=== PATIENT | male | born 1950 | race Two or more races ===

== ENCOUNTER 2019-04-27 17:38 | Emergency (ER) | payer MEDICARE, OTHER ==
[~2019-04-27] VITALS: Ht 152.4 cm; Wt 44.5 kg
[~2019-04-27 17:38] MED LIST: ASPI-1169 PO; ATOR80TA PO; BUSP10TA35 PO; CLOP75TA15 PO; FOLI1TAB16 PO; MECL-102 PO; NITR0.4T SL; OLME1TAB16 PO; TAMS0.4C34 PO
--- NOTE | 2019-04-27 17:45 | NUR ---
PT BIB RA 39 FROM HOME,DIZZINESS AND NEAR SYNCOPE ON THE WAY TO THE BATHROOM LOW BP IN THE FIELD. PT ALERT AND AWAKE, VSS, BREATHING EVEN AND UNLABORED ON ROOM AIR W/ NAD
--- NOTE | 2019-04-27 17:45 | NUR ---
PT CONNECTED TO INFORMATION MANAGEMENT MANAGER AND POX
--- NOTE | 2019-04-27 17:46 | NUR ---
BLOOD DRAWN AND SENT TO LAB
[2019-04-27 18:00] LABS: BASOPHILS % (AUTO) 0.6 % (0.0-2.0); EOSINOPHILS % (AUTO) 1.8 % (0.0-6.0); HEMATOCRIT 41 % (39-51); HEMOGLOBIN 13.5 g/dL (13.5-17.5); LYMPHOCYTES # (AUTO) 1.4 /CMM (0.8-4.8); LYMPHOCYTES % (AUTO) 17.3 % (20.0-44.0); MEAN CORPUSCULAR HGB CONC 33 g/dl (31.0-36.0); MEAN CORPUSCULAR VOLUME 89 fL (80-96); MONOCYTES # (AUTO) 0.7 /CMM (0.1-1.30); MONOCYTES % (AUTO) 7.9 % (2.0-12.0); NEUTROPHILS % (AUTO) 72.4 % (43.0-81.0); PLATELET COUNT (AUTO) 303 /CMM (150-450); RED BLOOD CELL COUNT(AUTO) 4.61 MIL/uL (4.5-6.0); WHITE BLOOD COUNT (AUTO) 8.3 K/uL (4.3-11.0)
[2019-04-27] MEDS ORDERED: ONDANSETRON HCL/PF 4 MG/2 ML VIAL IVP ONE (18:00)
[2019-04-27] MEDS ORDERED: IV NS 0.9% 1,000 ML BAG IV ONE (18:00)
[2019-04-27] MEDS ORDERED: ONDANSETRON HCL/PF 4 MG/2 ML VIAL ONE (18:04)
[2019-04-27 18:09] LABS: CALCIUM, SERUM 9.8 mg/dL (8.5-10.1); CARBON DIOXIDE 29 mmol/L (21-32); CHLORIDE 105 mmol/L (98-107); CREATININE 1.5 mg/dL (0.6-1.3); GLUCOSE 71 mg/dL (74-106); POTASSIUM 3.9 mmol/L (3.5-5.1); SODIUM SERUM 145 mmol/L (136-145); UREA NITROGEN, BLOOD 23 mg/dL (7-18)
[2019-04-27 18:14] LABS: ALANINE AMINOTRANSFERASE 22 U/L (12-78); ALBUMIN 3.8 g/dL (3.4-5.0); ALKALINE PHOSPHATASE 100 U/L (46-116); ASPARTATE AMINOTRANSFERASE 15 U/L (15-37); BILIRUBIN,DIRECT 0.1 mg/dL (0.0-0.2); BILIRUBIN,TOTAL 0.2 mg/dL (0.2-1.0); TOTAL PROTEIN, SERUM 7.4 g/dL (6.4-8.2)
--- NOTE | 2019-04-27 18:47 | NUR ---
PT TAKEN TO CT SCAN
--- NOTE | 2019-04-27 19:00 | NUR ---
PT BACK FROM CT
--- NOTE | 2019-04-27 19:52 | NUR ---
Patient discharged to home in stable condition. Written and verbal after care instructions given. Patient verbalizes understanding of instruction.IV removed. Catheter intact and site benign. Pressure and 4x4 applied to site. No bleeding noted.
[2019-04-27 19:53] VITALS: BP 109/50
== END 2019-04-27 19:53 | disposition home or self-care (01) ==
LOC: ER 17:39
DX: S00.01XA Abrasion of scalp, initial encounter (principal); R55 Syncope and collapse; I11.0 Hypertensive heart disease with heart failure; I50.9 Heart failure, unspecified; N40.0 Benign prostatic hyperplasia without lower urinary tract symptoms; D64.9 Anemia, unspecified; E78.00 Pure hypercholesterolemia, unspecified; I25.10 Atherosclerotic heart disease of native coronary artery without angina pectoris; F17.210 Nicotine dependence, cigarettes, uncomplicated; Z95.818 Presence of other cardiac implants and grafts; Z98.890 Other specified postprocedural states; Z79.82 Long term (current) use of aspirin; Z79.899 Other long term (current) drug therapy; X58.XXXA Exposure to other specified factors, initial encounter; Y93.89 Activity, other specified; Y92.89 Other specified places as the place of occurrence of the external cause; Y99.8 Other external cause status
CPT/HCPCS: 36415; 70450; 71045; 80048; 80076; 84484; 85025; 93005 ×2; 96361; 96374; 99284; J2405; J7030

== ENCOUNTER 2020-02-07 06:32 | Inpatient (IN) | payer MEDICARE, OTHER ==
[~2020-02-07] VITALS: Ht 152.4 cm; Wt 43.1 kg
[~2020-02-07 06:32] MED LIST changes: -MECL-102 PO; +MECL-159 PO
--- NOTE | 2020-02-07 06:35 | NUR ---
PT BIBRA39 FROM HOME C/O WORSENING SOB X 1 WEEK AND COUGH W/ CONGESTION.-FEVER. PT AAOX4, SATTING 88% ON RA, PLACED ON 3 L O2, PT NOW SATTING 93%. PT WAS COVID NEGATIVE 3 DAYS AGO AT [facility]. PT CONNECTED TO THE OUTPATIENT PHARMACY MANAGER AND POX.
--- NOTE | 2020-02-07 06:40 | NUR ---
BLOOD COLLECTED AND SENT TO LAB
--- NOTE | 2020-02-07 06:40 | NUR ---
EKG AT BEDSIDE
--- NOTE | 2020-02-07 06:50 | NUR ---
AWAITING COVID SWAB
--- NOTE | 2020-02-07 06:50 | NUR ---
PT UNABLE TO PROVIDE URINE AT THIS TIME. MADE AWARE
[2020-02-07] MEDS ORDERED: IV NS 0.9% 500 ML IV ONE (07:00)
[2020-02-07] MEDS ORDERED: CEFTRIAXONE 1GM BAG (ER ONLY) 50 ML IV ONE (07:00)
[2020-02-07] MEDS ORDERED: AZITHROMYCIN 500 MG in IV D5W 250 ML IV ONE (07:00)
[2020-02-07] MEDS ORDERED: IPRATROPIUM NEB FS 0.5 MG/2.5 ML AMPUL.NEB NEB ONE (07:00)
[2020-02-07] MEDS ORDERED: ALBUTEROL FS 2.5 MG/3 ML VIAL.NEB NEB ONE (07:00)
--- NOTE | 2020-02-07 07:03 | NUR ---
BALA SWABBED AND SENT TO LAB
[2020-02-07] MEDS ORDERED: ALBUTEROL FS 2.5 MG/3 ML VIAL.NEB ONE (07:05)
[2020-02-07] MEDS ORDERED: IPRATROPIUM NEB FS 0.5 MG/2.5 ML AMPUL.NEB ONE (07:05)
--- NOTE | 2020-02-07 07:06 | NUR ---
CALLED PHARMACY FOR MEDS
--- NOTE | 2020-02-07 07:06 | NUR ---
RT AT BEDSIDE FOR BREATHING TREATMENT
--- NOTE | 2020-02-07 07:07 | NUR ---
RT AT BEDSIDE
[2020-02-07 07:12] LABS: BASOPHILS # (AUTO) 0.1 /CMM (0.0-0.2); EOSINOPHILS % (AUTO) 13.4 % (0.0-6.0); HEMATOCRIT 43 % (39-51); LYMPHOCYTES # (AUTO) 2.3 /CMM (0.8-4.8); LYMPHOCYTES % (AUTO) 21.8 % (20.0-44.0); MEAN CORPUSCULAR HGB CONC 33 g/dl (31.0-36.0); MEAN CORPUSCULAR VOLUME 92 fL (80-96); MONOCYTES # (AUTO) 0.9 /CMM (0.1-1.30); MONOCYTES % (AUTO) 8.4 % (2.0-12.0); NEUTROPHILS # (AUTO) 5.8 /CMM (1.8-8.9); NEUTROPHILS % (AUTO) 55.4 % (43.0-81.0); PLATELET COUNT (AUTO) 312 /CMM (150-450); RED BLOOD CELL COUNT(AUTO) 4.68 MIL/uL (4.5-6.0); WHITE BLOOD COUNT (AUTO) 10.4 K/uL (4.3-11.0)
[2020-02-07 07:24] LABS: CALCIUM, SERUM 8.7 mg/dL (8.5-10.1); CARBON DIOXIDE 22 mmol/L (21-32); CHLORIDE 106 mmol/L (98-107); GLUCOSE 105 mg/dL (74-106); POTASSIUM 4.3 mmol/L (3.5-5.1); SODIUM SERUM 142 mmol/L (136-145); UREA NITROGEN, BLOOD 23 mg/dL (7-18)
[2020-02-07 07:39] LABS: ALANINE AMINOTRANSFERASE 26 U/L (12-78); ALBUMIN 3.6 g/dL (3.4-5.0); ALKALINE PHOSPHATASE 87 U/L (46-116); ASPARTATE AMINOTRANSFERASE 20 U/L (15-37); B-TYPE NATRIURETIC PEPTIDE 110 PG/ML (0-125); BILIRUBIN,TOTAL 0.3 mg/dL (0.2-1.0); TOTAL PROTEIN, SERUM 7.5 g/dL (6.4-8.2)
[2020-02-07 07:58] LABS: D-DIMER 1.64 mg/L(FEU (0.17-0.50)
[2020-02-07 08:15] LABS: CREATINE KINASE, TOTAL 322 U/L (39-308); FERRITIN 43 ng/mL (8-388)
--- NOTE | 2020-02-07 08:19 | NUR ---
room 103
[2020-02-07 08:21] LABS: C-REACTIVE PROTEIN < 0.2 mg/dL (0.0-0.9)
[2020-02-07] MEDS ORDERED: methylPREDNISolone SOD SUCC 125 MG/2ML VIAL IV ONE (08:30)
[2020-02-07] MEDS ORDERED: ALBU18HF2 INH (08:30)
[2020-02-07] MEDS ORDERED: OLME1TAB19 PO (08:30)
[2020-02-07] MEDS ORDERED: ALIR150P SQ (08:30)
[2020-02-07] MEDS ORDERED: methylPREDNISolone SOD SUCC 125 MG/2ML VIAL ONE (08:32)
[2020-02-07] MEDS ORDERED: IOHEXOL-350 100 ML VIAL IV ONE ×2 (08:34→08:56)
[2020-02-07] MEDS ORDERED: IV NS 0.9% 250 ML IV ONE (08:35)
--- NOTE | 2020-02-07 08:43 | NUR ---
wheeled patient via gurney accompanied by [employer] for ct scan
--- NOTE | 2020-02-07 08:55 | NUR ---
report given to Kenn OSORIO for [place].
[2020-02-07] MEDS ORDERED: MAG HYDROX/AL HYDROX/SIMETH 30 ML UDC PO PRN (09:00)
[2020-02-07] MEDS ORDERED: OLMESARTAN PO SCH (09:00)
[2020-02-07] MEDS ORDERED: HYDROCHLOROTHIAZIDE PO SCH (09:00)
[2020-02-07] MEDS ORDERED: Z GUARD REMEDY 2 OZ OINT TP PRN (09:00)
[2020-02-07] MEDS ORDERED: MAGNESIUM HYDROXIDE 30 ML UDC PO PRN (09:00)
[2020-02-07] MEDS ORDERED: HYDROCODONE/APAP 5/325MG TABLET PO PRN (09:00)
[2020-02-07] MEDS ORDERED: ACETAMINOPHEN 325 MG TABLET PO PRN (09:00)
[2020-02-07] MEDS ORDERED: ONDANSETRON HCL/PF 4 MG/2 ML VIAL IVP PRN (09:00)
--- NOTE | 2020-02-07 09:07 | NUR ---
patient came back from ct
[2020-02-07 09:25] LABS: APPEARANCE,URINE Clear (CLEAR); BILIRUBIN,URINE Negative (NEGATIVE); BLOOD, URINE Trace-lysed Ery/uL (NEGATIVE); COLOR,URINE Other (YELLOW); KETONES,URINE Negative (NEGATIVE); LEUKOCYTE ESTERASE ,URINE Negative (NEGATIVE); NITRITE, URINE Negative (NEGATIVE); PH,URINE 5.5 (5.0-8.0); PROTEIN,URINE Negative (NEGATIVE); UGLUCOSE Negative (NEGATIVE); UROBILINOGEN,URINE 0.2 EU/dL (0.2)
[2020-02-07 09:47] LABS: BACTERIA,URINE None seen /HPF (None Seen); RBC,URINE 0-2 /HPF (0-2); WBC,URINE 0-2 /HPF (0-3)
--- NOTE | 2020-02-07 09:47 | NUR ---
SPOKE TO NURSING SUP ABOUT BED ASSIGNMENT CHANGE. CURRENTLY WORKING ON MOVING PATIENTS AROUND TO ACCOMODATE.
[2020-02-07 09:48] LABS: SQUAMOUS EPITHELIAL CELL,UR None Seen /HPF (None Seen); URINE AMORPHOUS URATE Few /HPF (None Seen)
[2020-02-07 10:40] LABS: BILIRUBIN,DIRECT 0.1 mg/dL (0.0-0.2)
--- NOTE | 2020-02-07 11:03 | NUR ---
overflow tele [phone]
--- NOTE | 2020-02-07 11:06 | NUR ---
report given to tisha RN for [place]
--- NOTE | 2020-02-07 11:38 | NUR ---
RN NOTES RECEIVED PATIENT FROM ER, PATIENT COMING IN DUE TO SHORTNESS OF BREATH. NO SIGNS OF SHORTNESS OF BREATH AT THIS TIME. ON ROOM AIR. AMBULATORY AND IS ABLE TO MOVE SELF FROM GURNEY TO BED. ALERT AND ORIENTEDX4, ABLE TO MAKE NEEDS KNOWN. NO COMPLAINTS OF PAIN AT THIS TIME BUT IS WORRIED AND IS ASKING FOR LAB RESULTS. PATIENT INFORMED THAT WE WILL DISCUSS RESULTS SOON HE SETTLES IN. ATTACHED TO THE MONITOR, V PACING AT 60s. IV ACCESS ON THE LFA, G [address] AND INTACT, FLUSHES WELL. PATIENT INFORMED ON ISOLATION STATUS PENDING COVID RESULTS. INFORMED ABOUT PLANS OF CARE. ENCOURAGE TO CALL FOR HELP AND ASSISTANCE. TO VERBALIZED FEELINGS AND CONCERNS. SAFETY MEASURES PUT IN PLACE. CALL LIGHT WITHIN REACH. WILL CONTINUE TO MONITOR PATIENT ACCORDINGLY
[2020-02-07 12:00] VITALS: BP 141/90
[2020-02-07] MEDS: methylPREDNISolone SOD SUCC 40 MG/ML VIAL IV SCH ×3 (12:49→17:17)
[2020-02-07] MEDS: CLOPIDOGREL BISULFATE 75 MG TABLET PO SCH (12:49)
[2020-02-07] MEDS: TAMSULOSIN 0.4 MG CAP.SR.24H PO SCH (12:49)
[2020-02-07] MEDS: ATORVASTATIN 40 MG TABLET PO SCH (12:49)
[2020-02-07] MEDS: ENOXAPARIN SODIUM 40 MG/0.4 ML DISP.SYRIN SQ SCH (12:50)
[2020-02-07] MEDS: FOLIC ACID 1 MG TABLET PO SCH (12:52)
[2020-02-07 16:00] VITALS: BP 150/89
[2020-02-07] MEDS: LOSARTAN POTASSIUM 50 MG TABLET PO SCH (17:30)
[2020-02-07] MEDS: HYDROCHLOROTHIAZIDE 25 MG TABLET PO SCH (17:30)
[2020-02-07] MEDS: IV NS 0.9% 1,000 ML IV PRN (19:04)
[2020-02-07] MEDS: IPRATROPIUM NEB FS 0.5 MG/2.5 ML AMPUL.NEB NEB SCH (19:30)
[2020-02-07] MEDS: ALBUTEROL FS 2.5 MG/0.5 ML VIAL.NEB NEB SCH (19:30)
[2020-02-07 22:00] VITALS: BP 145/87
--- NOTE | 2020-02-07 23:09 | NUR ---
RN OPENING NOTES: RECEIVED PT A/OX 4 IN BED RESTING COMFORTABLY. PATIENT IN NO S/SX OF ACUTE DISTRESS AT THIS TIME. NO SOB NOTED. PATIENT'S BREATHING IS EVEN AND UNLABORED. PATIENT IS ON 2 L OF OXYGEN VIA NC; TOLERATING WELL. PATIENT ON MECHANICAL VENT; SETTINGS PRESCRIBED; PT TOLERATED WELL. AMBU BAG AT BED SIDE ALARMS SET PER PROTOCOL AND AUDIBLE. VENT PLUGGED IN TO RED OUTLET. NO DISTRESS NOTED. PATIENT ON TELE MONITORING READING SINUS RHYTHM HR IS @72 AT TIME OF RECEIVED. NOTED IV SITE ON R FA #20 ; PATENT, INTACT AND FLUSHING WELLNO S/S OF INFECTION OR INFILTRATION. PATIENT ON CARDIAC DIET. URINAL AT BEDSIDE. SAFETY MEASURES HAVE BEEN PROVIDED AND IMPLEMENTED. PATIENT BED ALARM IS ON. HEAD OF BED ELEVATED. BED IS LOCKED, IN LOWEST POSITION AND SIDE RAILS UP. CALL LIGHT WITHIN REACH OF THE PATIENT. ISOLATION PRECAUTIONS IN PLACE. WILL CONTINUE TO MONITOR AND REASSESS FOR ANY CHANGES.
[2020-02-08] VITALS (7 sets, daily range): BP systolic 138–152; BP diastolic 63–85
--- NOTE | 2020-02-08 00:30 | NUR ---
[employer]NER[employer] NOTES RECEIVED PATIENT TRANSFER FROM ICU, ALERT AND ORIENTED X 4. VERBALLY RESPONSIVE AND ABLE TO FOLLOW DIRECTIONS. BREATHING REGULAR AND UNLABORED ON ROOM AIR. RIGHT FOREARM G20 IV LINE INTACT AND PATENT, INFUSING WELL WITH NO BLEEDING OR S/S OF INFILTRATION NOTED. ON CARDIAC MONITORING WITH AV PACING AT 66bpm. DENIES SUICIDAL IDEATION OR PAIN/DISCOMFORT AT THIS TIME. ON ISOLATION FOR SUSPECTED COVID19, PROPER ISOLATION PRECAUTIONS AND HAND WASHING OBSERVED. BED LOW AND LOCKED ON SEMI FOWLERS POSITION. CALL LIGHT IN REACH. WILL CONTINUE TO MONITOR.
--- NOTE | 2020-02-08 00:35 | NUR ---
RN NOTES REPORT GIVEN TO ASHLEY. PATIENT IS ALERT AND ORIENTED X4 LAO SPEAKING. PATIENT MOST RECENT V/S TAKEN AND RECORDED BP(140/85) T (98.2) HR (68) RR (17). PATIENT ON NC OF 2L OF O2,TOLERATES WELL .WITH IV LINE @ R FA #20 ;WITH RUNNINGIV FLUID OF NS @75MLS/HR. PATIENT TRANSFERRED TO MEDICAL SURGICAL ROOM 204 VIA MEDICAL BED. ALL PATIENT BELONGINGS TRANSFERRED WITH THE PATIENT. PATIENT SAFETY WAS MAINTAINED, CHEYENNE OSORIO RECEIVED THE PATIENT AND WILL CONTINUE CARE. Addendum: 02/08/20 at 0232 by BRITANY SHINE RN RN NOTES REPORT GIVEN TO ASHLEY. PATIENT IS ALERT AND ORIENTED X4 LAO SPEAKING. PATIENT MOST RECENT V/S TAKEN AND RECORDED BP(140/85) T (98.2) HR (68) RR (17). PATIENT ON NC OF 2L OF O2,TOLERATES WELL .WITH IV LINE @ R FA #20 ;WITH RUNNINGIV FLUID OF NS @75MLS/HR. PATIENT TRANSFERRED TO MEDICAL SURGICAL ROOM 204 VIA MEDICAL BED. ALL PATIENT BELONGINGS TRANSFERRED WITH THE PATIENT. PATIENT SAFETY WAS MAINTAINED, JO FERNANDEZ RECEIVED THE PATIENT AND WILL CONTINUE CARE.
[2020-02-08] MEDS: IPRATROPIUM NEB FS 0.5 MG/2.5 ML AMPUL.NEB NEB SCH ×4 (01:30→19:30)
[2020-02-08] MEDS: ALBUTEROL FS 2.5 MG/0.5 ML VIAL.NEB NEB SCH ×4 (01:30→19:30)
--- NOTE | 2020-02-08 06:50 | NUR ---
HI LO DRIVER CLOSING NOTES PATIENT IN BED ALERT AND ORIENTED X 4. AFEBRILE WITH NO S/S OF DISTRESS OBSERVED. RIGHT FOREARM G20 IV LINE PATENT AND INFUSING WELL. MAINTAINED ON CARDIAC MONITORING WITH AV PACING AT 68bpm. DENIES PAIN/DISCOMFORT AT THIS TIME. MAINTAINED ON ISOLATION FOR SUSPECTED COVID19, PROPER ISOLATION PRECAUTIONS AND HAND WASHING OBSERVED. BED LOW AND LOCKED ON SEMI FOWLERS POSITION. CALL LIGHT IN REACH. WILL ENDORSE TO MORNING SHIFT FOR MARILYNN.
--- NOTE | 2020-02-08 07:15 | NUR ---
RN OPENING NOTES RECEIVED PATIENT IN BED ALERT AND ORIENTED X 4. NO CARDIAC OR RESPIRATORY DISTRESS NOTED. NO SOB NOTED. AFEBRILE WITH NO S/S OF DISTRESS OBSERVED. IV ACCESS NOTED ON RIGHT FOREARM G20 IV LINE PATENT AND INFUSING WELL. MAINTAINED ON CARDIAC MONITORING WITH SHOWING V PACING AT 70bpm. DENIES PAIN/DISCOMFORT AT THIS TIME. MAINTAINED ON ISOLATION FOR SUSPECTED COVID19, PROPER ISOLATION PRECAUTIONS AND HAND WASHING OBSERVED. BED LOW AND LOCKED ON SEMI FOWLERS POSITION. CALL LIGHT IN REACH. WILL CONT TO MONITOR
[2020-02-08 07:43] LABS: BASOPHILS % (AUTO) 0.1 % (0.0-2.0); EOSINOPHILS % (AUTO) 0.1 % (0.0-6.0); HEMATOCRIT 38 % (39-51); LYMPHOCYTES # (AUTO) 1.3 /CMM (0.8-4.8); LYMPHOCYTES % (AUTO) 9.6 % (20.0-44.0); MEAN CORPUSCULAR HGB CONC 32 g/dl (31.0-36.0); MEAN CORPUSCULAR VOLUME 92 fL (80-96); MONOCYTES # (AUTO) 0.8 /CMM (0.1-1.30); MONOCYTES % (AUTO) 5.8 % (2.0-12.0); NEUTROPHILS # (AUTO) 11.8 /CMM (1.8-8.9); NEUTROPHILS % (AUTO) 84.4 % (43.0-81.0); PLATELET COUNT (AUTO) 252 /CMM (150-450); RED BLOOD CELL COUNT(AUTO) 4.07 MIL/uL (4.5-6.0)
[2020-02-08 07:52] LABS: CALCIUM, SERUM 9.1 mg/dL (8.5-10.1); CREATININE 0.9 mg/dL (0.6-1.3); MAGNESIUM 2.1 mg/dL (1.8-2.4); PHOSPHORUS 3.8 mg/dL (2.5-4.9); POTASSIUM 4.4 mmol/L (3.5-5.1)
[2020-02-08 08:07] LABS: THYROID STIMULATING HORMONE 0.793 uIU/mL (0.358-3.74)
[2020-02-08] MEDS: LOSARTAN POTASSIUM 50 MG TABLET PO SCH (08:25)
[2020-02-08] MEDS: methylPREDNISolone SOD SUCC 40 MG/ML VIAL IV SCH ×3 (08:25→16:38)
[2020-02-08] MEDS: CEFTRIAXONE 1 G in IV D5W 50 ML IV SCH (08:25)
[2020-02-08] MEDS: TAMSULOSIN 0.4 MG CAP.SR.24H PO SCH (08:25)
[2020-02-08] MEDS: CLOPIDOGREL BISULFATE 75 MG TABLET PO SCH (08:26)
[2020-02-08] MEDS: ATORVASTATIN 40 MG TABLET PO SCH (08:26)
[2020-02-08] MEDS: FOLIC ACID 1 MG TABLET PO SCH (08:26)
[2020-02-08] MEDS: HYDROCHLOROTHIAZIDE 25 MG TABLET PO SCH (08:26)
[2020-02-08] MEDS: ENOXAPARIN SODIUM 40 MG/0.4 ML DISP.SYRIN SQ SCH (08:28)
[2020-02-08] MEDS: AZITHROMYCIN 500 MG in IV D5W 250 ML IV SCH (09:58)
[2020-02-08 10:58] LABS: ABG BASE EXCESS -1.2 mmol/L; ABG OXYGEN SATURATION 99.1 % (92.0-98.5); ABG PCO2 26.7 mmHg (35.0-45.0); ABG PH 7.505 (7.350-7.450); ABG PO2 157.6 mmHg (75.0-100.0); COHb 0.6 % (0.5-1.5); MetHb 0.1 % (0.0-1.5); O2Hb 98.4 % (94.0-97.0); SITE, ABG Right Radial; VENT MODE, BG RA
--- NOTE | 2020-02-08 18:35 | NUR ---
RN CLOSING NOTES PATIENT IN BED ALERT AND ORIENTED X 4. NO CARDIAC OR RESPIRATORY DISTRESS NOTED. NO SOB NOTED. AFEBRILE WITH NO S/S OF DISTRESS OBSERVED. IV ACCESS NOTED ON RIGHT FOREARM G20 IV LINE PATENT AND INFUSING WELL. MAINTAINED ON CARDIAC MONITORING WITH SHOWING V PACING AT 70bpm. DENIES PAIN/DISCOMFORT AT THIS TIME. ALL NEEDS MET AND ATTENDED. ALL DUE MEDS ADMINISTERED. NO ASE NOTED. MAINTAINED ON ISOLATION FOR SUSPECTED COVID19, PROPER ISOLATION PRECAUTIONS AND HAND WASHING OBSERVED. BED LOW AND LOCKED ON SEMI FOWLERS POSITION. CALL LIGHT IN REACH. WILL ENDORSE TO NEXT SHIFT
--- NOTE | 2020-02-08 19:10 | NUR ---
MELTER SUPERVISOR OPENING NOTES: RECEIVED PATIENT IN BED, AWAKE. A/O X4. NO S/S OF DISTRESS NOTED. CALL LIGHT WITHIN REACH. NO COMPLAIN OF PAIN. BED IN LOWEST AND LOCKED POSITION. BED ALARM ON. INSTRUCTED PATIENT TO CALL FOR ANY ASSISTANCE WHEN OOB, PATIENT VERBALIZED UNDERSTANDING.
[2020-02-08] MEDS: IV NS 0.9% 1,000 ML IV PRN (23:15)
--- NOTE | 2020-02-08 23:29 | NUR ---
PATIENT REFUSED TO HAVE THE IVF RUNNING.
[2020-02-09] VITALS: BP 154/72
--- NOTE | 2020-02-09 00:09 | NUR ---
PATIENT'S IV IS LEAKING,REFUSED IV REINSERTION AND IVF.
[2020-02-09] MEDS: IPRATROPIUM NEB FS 0.5 MG/2.5 ML AMPUL.NEB NEB SCH ×4 (01:30→19:30)
[2020-02-09] MEDS: ALBUTEROL FS 2.5 MG/0.5 ML VIAL.NEB NEB SCH ×4 (01:30→19:30)
[2020-02-09 04:00] VITALS: BP_SYST 153; BP_SYST 154; BP_DIAS 70; BP_DIAS 72
--- NOTE | 2020-02-09 07:28 | NUR ---
COMMISSIONING EDITOR CLOSING NOTES: PATIENT IN BED,ASLEEP. NO S/S OF DISTRESS NOTED. NO COMPLAIN OF PAIN. CALL LIGHT WITHIN REACH. BED ALARM ON. BED IN LOWEST AND LOCKED POSITION.
--- NOTE | 2020-02-09 07:40 | NUR ---
RN NOTE THE PATIENT IS RECEIVED IN BED. ALERT AND ORIENTED X4. IN ROOM AIR AND DENIES SOB. RESPIRATION REGULAR AND UNLABORED. DENIES PAIN. IN NO APPARENT DISTRESS. BED LOW AND LOCKED. SIDE RAILS UP X2. CALL LIGHT WITHIN REACH. WILL CONTINUE TO MONITOR.
[2020-02-09 08:00] VITALS: BP 152/69
[2020-02-09] MEDS: methylPREDNISolone SOD SUCC 40 MG/ML VIAL IV SCH ×2 (08:14→18:22)
[2020-02-09] MEDS: FOLIC ACID 1 MG TABLET PO SCH (08:14)
[2020-02-09] MEDS: CEFTRIAXONE 1 G in IV D5W 50 ML IV SCH (08:14)
[2020-02-09] MEDS: CLOPIDOGREL BISULFATE 75 MG TABLET PO SCH (08:15)
[2020-02-09] MEDS: ATORVASTATIN 40 MG TABLET PO SCH (08:15)
[2020-02-09] MEDS: TAMSULOSIN 0.4 MG CAP.SR.24H PO SCH (08:15)
[2020-02-09] MEDS: ENOXAPARIN SODIUM 40 MG/0.4 ML DISP.SYRIN SQ SCH (08:16)
[2020-02-09] MEDS: LOSARTAN POTASSIUM 50 MG TABLET PO SCH (08:17)
[2020-02-09] MEDS: HYDROCHLOROTHIAZIDE 25 MG TABLET PO SCH (08:17)
--- NOTE | 2020-02-09 08:32 | NUR ---
RT NOTE PER COVID PROTOCOL NO NEBULIZED TX GIVEN
[2020-02-09 08:46] LABS: BASOPHILS % (AUTO) 0.2 % (0.0-2.0); EOSINOPHILS % (AUTO) 0.2 % (0.0-6.0); HEMATOCRIT 42 % (39-51); LYMPHOCYTES % (AUTO) 11.7 % (20.0-44.0); MEAN CORPUSCULAR HGB CONC 34 g/dl (31.0-36.0); MEAN CORPUSCULAR VOLUME 89 fL (80-96); MONOCYTES # (AUTO) 0.5 /CMM (0.1-1.30); MONOCYTES % (AUTO) 3.2 % (2.0-12.0); NEUTROPHILS # (AUTO) 14.5 /CMM (1.8-8.9); NEUTROPHILS % (AUTO) 84.7 % (43.0-81.0); PLATELET COUNT (AUTO) 319 /CMM (150-450); RED BLOOD CELL COUNT(AUTO) 4.64 MIL/uL (4.5-6.0); WHITE BLOOD COUNT (AUTO) 17.1 K/uL (4.3-11.0)
[2020-02-09 08:49] LABS: CALCIUM, SERUM 9.9 mg/dL (8.5-10.1); POTASSIUM 3.6 mmol/L (3.5-5.1)
[2020-02-09] MEDS: AZITHROMYCIN 500 MG in IV D5W 250 ML IV SCH (09:57)
[2020-02-09 12:00] VITALS: BP 139/79
[2020-02-09 16:00] VITALS: BP 155/73
--- NOTE | 2020-02-09 18:44 | NUR ---
RN NOTE THE PATIENT IS ALERT AND ORIENTED X4. DENIES PAIN. IN ROOM AIR AND OXYGEN SATURATION IS AT 93%. FLIP SOB. THE PATIENT IN NO APPARENT DISTRESS. THE PATIENT HAS NEW LINE OF RIGHT FA 22 THAT IS PATENT AND SALINE LOCKED. THE PATIENT IS NON-COMPLIANT WITH IV FLUIDS DESPITE EXPLAINING RISKS AND BENEFITS MULTIPLE TIMES. THE PATIENT IN NO APPARENT DISTRESS. BED LOW AND LOCKED. SIDE RAILS UP X2. CALL LIGHT WITHIN REACH. WILL ENDORSE TO RAISER HELPER.
--- NOTE | 2020-02-09 19:45 | NUR ---
CLASSROOM ASSISTANT OPENING NOTES RECEIVED PATIENT FROM MORNING SHIFT , ALERT AND ORIENTED X 4. AMBULATORY, VERBALLY RESPONSIVE AND ABLE TO FOLLOW DIRECTIONS. BREATHING REGULAR AND UNLABORED ON ROOM AIR. RIGHT FOREARM G20 IV LINE INTACT AND PATENT, FLUSHING WELL WITH NO BLEEDING OR S/S OF INFILTRATION NOTED. ON CARDIAC MONITORING WITH AV PACING AT 79bpm. DENIES SUICIDAL IDEATION OR PAIN/DISCOMFORT AT THIS TIME. ON ISOLATION FOR SUSPECTED COVID19, PROPER ISOLATION PRECAUTIONS AND HAND WASHING OBSERVED. BED LOW AND LOCKED ON SEMI FOWLERS POSITION. CALL LIGHT IN REACH. WILL CONTINUE TO MONITOR.
[2020-02-09 20:00] VITALS: BP 150/80
--- NOTE | 2020-02-09 20:00 | NUR ---
CIRCULAR SAW OPERATOR NOTES REFUSED IV FLUIDS INFUSION, RISK AND BENEFITS EXPLAINED. MD AWARE. WILL CONTINUE TO MONITOR.
--- NOTE | 2020-02-09 20:37 | NUR ---
RT per covid protocol, no neb tx given
[2020-02-10] VITALS: BP 146/72
[2020-02-10] MEDS: IPRATROPIUM NEB FS 0.5 MG/2.5 ML AMPUL.NEB NEB SCH ×4 (01:30→20:04)
[2020-02-10] MEDS: ALBUTEROL FS 2.5 MG/0.5 ML VIAL.NEB NEB SCH ×4 (01:30→20:04)
[2020-02-10 04:00] VITALS: BP 143/75
--- NOTE | 2020-02-10 06:40 | NUR ---
PAPER PRODUCTS PRINTER CLOSING NOTES PATIENT IN BED ALERT AND ORIENTED X 4. AFEBRILE WITH NO S/S OF DISTRESS OBSERVED. RIGHT FOREARM G20 IV LINE PATENT AND INFUSING WELL. MAINTAINED ON CARDIAC MONITORING WITH AV PACING AT 61bpm. DENIES PAIN/DISCOMFORT AT THIS TIME. MAINTAINED ON ISOLATION FOR SUSPECTED COVID19, PROPER ISOLATION PRECAUTIONS AND HAND WASHING OBSERVED. BED LOW AND LOCKED ON SEMI FOWLERS POSITION. CALL LIGHT IN REACH. WILL ENDORSE TO MORNING SHIFT FOR MARILYNN.
[2020-02-10 08:00] VITALS: BP 157/77
--- NOTE | 2020-02-10 08:00 | NUR ---
rn notes patient seen in the bed a/o x4, room air, no acute respiratory distress, v/s stable, due medication administered, iv access on right FA intact,refused iv infusion stae he will drink water. patient ambulatory self care, refused pain. call light within to reach, will continued monitoring.
[2020-02-10 09:00] LABS: BASOPHILS % (AUTO) 0.1 % (0.0-2.0); EOSINOPHILS % (AUTO) 0.1 % (0.0-6.0); HEMATOCRIT 42 % (39-51); HEMOGLOBIN 13.5 g/dL (13.5-17.5); LYMPHOCYTES # (AUTO) 1.6 /CMM (0.8-4.8); MEAN CORPUSCULAR HGB CONC 33 g/dl (31.0-36.0); MEAN CORPUSCULAR VOLUME 90 fL (80-96); MONOCYTES # (AUTO) 0.8 /CMM (0.1-1.30); MONOCYTES % (AUTO) 5.7 % (2.0-12.0); NEUTROPHILS # (AUTO) 11.8 /CMM (1.8-8.9); NEUTROPHILS % (AUTO) 83.1 % (43.0-81.0); PLATELET COUNT (AUTO) 291 /CMM (150-450); RED BLOOD CELL COUNT(AUTO) 4.64 MIL/uL (4.5-6.0); WHITE BLOOD COUNT (AUTO) 14.2 K/uL (4.3-11.0)
[2020-02-10] MEDS: ENOXAPARIN SODIUM 40 MG/0.4 ML DISP.SYRIN SQ SCH ×2 (09:00→09:09)
[2020-02-10] MEDS ORDERED: AZITHROMYCIN 250 MG TABLET PO SCH (09:00)
[2020-02-10] MEDS: LOSARTAN POTASSIUM 50 MG TABLET PO SCH (09:02)
[2020-02-10] MEDS: CEFTRIAXONE 1 G in IV D5W 50 ML IV SCH (09:02)
[2020-02-10] MEDS: ATORVASTATIN 40 MG TABLET PO SCH (09:02)
[2020-02-10] MEDS: TAMSULOSIN 0.4 MG CAP.SR.24H PO SCH (09:02)
[2020-02-10] MEDS: CLOPIDOGREL BISULFATE 75 MG TABLET PO SCH (09:03)
[2020-02-10] MEDS: HYDROCHLOROTHIAZIDE 25 MG TABLET PO SCH (09:03)
[2020-02-10] MEDS: methylPREDNISolone SOD SUCC 40 MG/ML VIAL IV SCH ×2 (09:04→17:50)
[2020-02-10] MEDS: FOLIC ACID 1 MG TABLET PO SCH (09:04)
[2020-02-10 12:00] VITALS: BP 130/64
--- NOTE | 2020-02-10 12:00 | NUR ---
rn notes seen patient via hospitalist plan is discharge home after covid result.
[2020-02-10 12:44] LABS: POTASSIUM 4.9 mmol/L (3.5-5.1)
--- NOTE | 2020-02-10 13:22 | NUR ---
refused obedn tx.pt. said " I don't need that." Addendum: 02/10/20 at 1322 by SERVANDO JEWELL RT Amended: Links added.
[2020-02-10] MEDS ORDERED: AMOX500C2 PO (15:54)
[2020-02-10] MEDS ORDERED: METH4TAB3 PO (15:54)
[2020-02-10] MEDS ORDERED: AZIT500T4 PO (15:54)
[2020-02-10 16:00] VITALS: BP 127/69
--- NOTE | 2020-02-10 18:50 | NUR ---
rn notes GET COVID-19 RESULT AT THIS TIME, AND PATIENT WILL DISCHARGE HOME SELF CARE. PATIENT WILL FOLLOW PCP. ENDORSED ONCOMING NURSE FOLLOW PLAN OF CARE.
[2020-02-10 20:00] VITALS: BP 139/49
--- NOTE | 2020-02-10 20:02 | NUR ---
telegraph inspector opening note received patient in bed. a/ox 4. tolerating room air.respirations are even and unlabored. no s/s sob noted. no c/o pain at this time. in no apparent distress. iv access in RFA #20 currently SL. bed is low an d locked, hob elevated in semi fowlers side rials up x2. call light within reach. will continue to monitor.
--- NOTE | 2020-02-10 21:14 | NUR ---
telephone lineworkerexternal grinder tender note patient is being dicharged home. being picked up by son. wheel chair down with staff software engineer. exit care given and explained. belongings list signed. iv removed. ID band removed. skin remains intact. vital signs stable. in no apparent distress.
[2020-02-11] MEDS: ALBUTEROL FS 2.5 MG/0.5 ML VIAL.NEB NEB SCH (01:30)
[2020-02-11] MEDS: IPRATROPIUM NEB FS 0.5 MG/2.5 ML AMPUL.NEB NEB SCH (01:30)
== END 2020-02-10 21:13 | disposition home or self-care (01) | DRG 189 ==
LOC: ER 06:32 → TELE1 08:59 → ICU 10:46 → TELE2 23:33
PROVIDERS: ADMIT Nurse Practitioner Acute Care; ATTEND Nurse Practitioner Acute Care
DX: J96.01 Acute respiratory failure with hypoxia (principal); E87.2 Acidosis; J44.1 Chronic obstructive pulmonary disease with (acute) exacerbation; J45.901 Unspecified asthma with (acute) exacerbation; E86.0 Dehydration; N40.0 Benign prostatic hyperplasia without lower urinary tract symptoms; E78.00 Pure hypercholesterolemia, unspecified; E78.5 Hyperlipidemia, unspecified; I25.10 Atherosclerotic heart disease of native coronary artery without angina pectoris; Z95.5 Presence of coronary angioplasty implant and graft; Z79.899 Other long term (current) drug therapy; Z79.51 Long term (current) use of inhaled steroids; Z79.02 Long term (current) use of antithrombotics/antiplatelets; Z72.0 Tobacco use; I11.0 Hypertensive heart disease with heart failure; I50.9 Heart failure, unspecified
CPT/HCPCS: 36415; 36600; 71045-TC; 80048-TC; 80053-TC; 80061-TC; 81000-TC; 82248-TC; 82550-TC; 82553; 82728-TC; 82803-TC; 83605-TC; 83615-TC; 83735-TC; 83880; 84100-TC; 84443-TC; 84484-TC; 85025-TC; 85378-TC; 85385-TC; 85730-TC; 86140-TC; 87040-TC; 87081-TC; 94799-TC; C9803-CS; G0378; J0456; J0696; J1650; J2920; J2930; J7030; J7040; J7050; J7060; Q9967; U0003-CS

== ENCOUNTER 2020-10-15 08:54 | Outpatient (CLI) | payer MEDICARE, MEDICAID ==
[~2020-10-15 08:54] MED LIST changes: +ALBU18HF2 INH; +ALIR150P SQ; +AMOX500C2 PO; -ASPI-1169 PO; +AZIT500T4 PO; -BUSP10TA35 PO; -MECL-159 PO; +METH4TAB3 PO; -NITR0.4T SL; -OLME1TAB16 PO; +OLME1TAB19 PO
[2020-10-15 09:36] LABS: CALCIUM, SERUM 9.3 mg/dL (8.5-10.1); CREATININE 0.8 mg/dL (0.6-1.3); POTASSIUM 4.6 mmol/L (3.5-5.1)
== END 2020-10-15 23:59 | disposition home or self-care (01) ==
LOC: LAB 08:54
DX: Z01.812 Encounter for preprocedural laboratory examination (principal)
CPT/HCPCS: 36415; 80048-TC

== ENCOUNTER 2020-10-20 09:51 | Outpatient (CLI) | payer MEDICARE, OTHER ==
[2020-10-20] MEDS ORDERED: IV NS 0.9% 250 ML IV ONE (10:07)
[2020-10-20] MEDS ORDERED: CT SWABBABLE VALVE TRANS SET 1 EA INFUS.SET MC ONE (10:07)
[2020-10-20] MEDS ORDERED: IOHEXOL-300 100 ML VIAL IV ONE (10:07)
== END 2020-10-20 23:59 | disposition home or self-care (01) ==
LOC: CT 09:51
DX: J43.9 Emphysema, unspecified (principal); R91.1 Solitary pulmonary nodule; J98.4 Other disorders of lung; I51.7 Cardiomegaly; I25.10 Atherosclerotic heart disease of native coronary artery without angina pectoris; I70.0 Atherosclerosis of aorta; M47.814 Spondylosis without myelopathy or radiculopathy, thoracic region; Z95.0 Presence of cardiac pacemaker
CPT/HCPCS: 71260; J7050; Q9967

== ENCOUNTER 2021-09-29 09:46 | Outpatient (CLI) | payer MEDICARE, OTHER | END 2021-09-29 23:59 | disposition home or self-care (01) | LOC: CT 09:46 | PROVIDERS: ATTEND Family Medicine | DX: R91.8 Other nonspecific abnormal finding of lung field (principal); J43.2 Centrilobular emphysema; I25.10 Atherosclerotic heart disease of native coronary artery without angina pectoris; I70.0 Atherosclerosis of aorta; M47.819 Spondylosis without myelopathy or radiculopathy, site unspecified | CPT/HCPCS: 71250-TC ==